=== PATIENT | female | born 1955 | race Caucasian/White ===

== ENCOUNTER → 2024-07-22 12:40 | Outpatient (BNVA) | payer OTHER, SELFPAY | PROVIDERS: PCP Family Medicine; Visit Provider Podiatrist Foot & Ankle Surgery | DX: M79.671 Pain in right foot (principal); M79.672 Pain in left foot; M20.41 Other hammer toe(s) (acquired), right foot; M20.42 Other hammer toe(s) (acquired), left foot; M21.612 Bunion of left foot; M21.611 Bunion of right foot; M21.622 Bunionette of left foot; M21.621 Bunionette of right foot | CPT/HCPCS: 73630 ==